=== PATIENT | male | born 1965 | race Caucasian/White ===

== ENCOUNTER 2019-10-14 12:44 | Emergency (ER) | payer MEDICARE, BC, OTHER ==
[~2019-10-14] VITALS: Ht 177.8 cm; Wt 102.3 kg
--- NOTE | 2019-10-14 13:02 | REPVR ---
PROCEDURE INFORMATION: Exam: CT Head Without Contrast Exam date and time: 10/14/2019 12:51 PM Age: 54 years old Clinical indication: Walking, difficulty and weakness, extremity; Left; Additional info: Stroke like symptoms TECHNIQUE: Imaging protocol: Computed tomography of the head without contrast. Radiation optimization: All CT scans at this facility use at least one of these dose optimization techniques: automated exposure control; mA and/or kV adjustment per patient size (includes targeted exams where dose is matched to clinical indication); or iterative reconstruction. Other technique: STROKE PROTOCOL was implemented. COMPARISON: No relevant prior studies available. FINDINGS: Brain: Normal. No hemorrhage. Unremarkable white matter. No mass effect. Ventricles: Normal. No ventriculomegaly. Bones/joints: Unremarkable. No acute fracture. Sinuses: Visualized sinuses are unremarkable. No fluid levels. Mastoid air cells: Visualized mastoid air cells are well aerated. Soft tissues: Unremarkable. IMPRESSION: No acute intracranial abnormality. ASSESSMENT: ASPECTS ([place] Stroke Program Early CT Score) is 10. Electronically signed by: Kole Chu On 10/14/2019 13:01:35 PM
[2019-10-14 13:15] LABS: BASO # 0.1 10^3/uL (0.0-0.2); BASO % 1.6 % (0.0-1.0); EOS # 0.1 10^3/uL (0.0-0.5); EOS % 2.2 % (0.0-3.0); HEMATOCRIT 43.9 % (42.0-52.0); HEMOGLOBIN 15.1 g/dl (13.5-17.5); LYMPH # 0.5 10^3/uL (1.5-5.0); LYMPH % 11.9 % (24.0-44.0); MEAN CORPUSCULAR HEMOGLOBIN 32.6 pg (27.0-33.0); MEAN CORPUSCULAR HGB CONC 34.4 g/dl (32.0-36.5); MEAN CORPUSCULAR VOLUME 94.8 fl (80.0-96.0); MONO # 0.4 10^3/uL (0.0-0.8); MONO % 9.2 % (0.0-5.0); NEUTROPHILS # 3.3 10^3/uL (1.5-8.5); NEUTROPHILS % 74.7 % (36.0-66.0); RED BLOOD COUNT 4.63 10^6/uL (4.30-6.10); WHITE BLOOD COUNT 4.5 10^3/uL (4.0-10.0)
[2019-10-14 13:25] LABS: PARTIAL THROMBOPLASTIN TIME 33.8 SECONDS (25.0-38.4)
[2019-10-14] MEDS ORDERED: JANU100T PO (13:37)
[2019-10-14] MEDS ORDERED: GABA-1171 PO ×2 (13:37→14:29)
[2019-10-14] MEDS ORDERED: SPIR100T3 PO (13:37)
[2019-10-14] MEDS ORDERED: REST30CA PO (13:37)
[2019-10-14] MEDS ORDERED: PROTPAK PO (13:37)
[2019-10-14] MEDS ORDERED: MIRA0.254 PO (13:37)
[2019-10-14] MEDS ORDERED: ROSU10TA6 PO (13:37)
[2019-10-14] MEDS ORDERED: LASI20TA3 PO (13:37)
[2019-10-14] MEDS ORDERED: REGL10TA6 PO (13:37)
[2019-10-14] MEDS ORDERED: ZOLO100T PO (13:37)
[2019-10-14] MEDS ORDERED: BACL10TA2 PO (13:37)
[2019-10-14] MEDS ORDERED: ZOFR8TAB24 PO (13:37)
[2019-10-14] MEDS ORDERED: NITR4TASL SL (13:37)
[2019-10-14] MEDS ORDERED: CARV25TA PO (13:37)
[2019-10-14] MEDS ORDERED: CREO3600 PO ×2 (13:37→14:29)
[2019-10-14] MEDS ORDERED: LACT10SO3 PO (13:37)
[2019-10-14] MEDS ORDERED: FERR325T3 PO (13:37)
[2019-10-14] MEDS ORDERED: HUMU1INJ2 SC (13:37)
[2019-10-14] MEDS ORDERED: XIFA550T PO (13:37)
[2019-10-14] MEDS ORDERED: ETAN50SY SC (13:37)
[2019-10-14] MEDS ORDERED: NEUR600T PO (13:37)
[2019-10-14 13:39] LABS: BLOOD UREA NITROGEN 14 MG/DL (7-18); CARBON DIOXIDE LEVEL 27 MEQ/L (21-32); CHLORIDE LEVEL 100 MEQ/L (98-107); CK-MB VALUE MASS 2.2 NG/ML (<3.6); CPK CREATINE PHOSPHOKINASE 76 U/L (39-308); CREATININE FOR GFR 1.02 MG/DL (0.70-1.30); GLOMERULAR FILTRATION RATE > 60.0 (>56); GLUCOSE, FASTING 319 MG/DL (70-100); INR 1.32; MB/CK RELATIVE INDEX 2.89 (< OR =4); POTASSIUM SERUM 4.3 MEQ/L (3.5-5.1); PROTHROMBIN TIME 16.1 SECONDS (11.8-14.0); SODIUM LEVEL 134 MEQ/L (136-145); TROPONIN I < 0.02 NG/ML (< 0.10)
[2019-10-14 13:43] LABS: PLATELET COUNT, AUTOMATED 50 10^3/uL (150-450)
[2019-10-14] MEDS ORDERED: ISOVUE-370 76% 100ML VIAL As Ordered ONE (13:43)
--- NOTE | 2019-10-14 13:44 | REPVR ---
PROCEDURE INFORMATION: Exam: CT Angiography Neck With Contrast Exam date and time: 10/14/2019 1:11 PM Age: 54 years old Clinical indication: Weakness; Additional info: CVA TECHNIQUE: Imaging protocol: Computed tomography angiography of the neck with intravenous contrast. 3D rendering: MIP and/or 3D reconstructed images were created by the technologist. Radiation optimization: All CT scans at this facility use at least one of these dose optimization techniques: automated exposure control; mA and/or kV adjustment per patient size (includes targeted exams where dose is matched to clinical indication); or iterative reconstruction. Contrast material: ISOVUE 370; Contrast volume: 100 ml; Contrast route: IV; COMPARISON: No relevant prior studies available. FINDINGS: Right common carotid artery: No stenosis. No dissection or occlusion. Right internal carotid artery: No stenosis of the extracranial segment. No dissection or occlusion. Right external carotid artery: No occlusion or stenosis of the origin. Right vertebral artery: No stenosis. No dissection or occlusion. Left common carotid artery: No stenosis. No dissection or occlusion. Left internal carotid artery: No stenosis of the extracranial segment. No dissection or occlusion. Left external carotid artery: No occlusion or stenosis of the origin. Left vertebral artery: No stenosis. No dissection or occlusion. Bones/joints: No acute fracture. Soft tissues: Normal. No significant soft tissue swelling. IMPRESSION: No stenosis or occlusion. REFERENCES: NASCET CRITERIA. The degree of internal carotid artery stenosis is based on NASCET criteria. Normal is no stenosis. Mild is less than 50% stenosis. Moderate is 50-69% stenosis. Severe is 70% to 99% stenosis. Total occlusion is no detectable patent lumen. Electronically signed by: Kole Chu On 10/14/2019 13:43:44 PM
--- NOTE | 2019-10-14 13:48 | REPVR ---
PROCEDURE INFORMATION: Exam: CT Angiography Head With Contrast Exam date and time: 10/14/2019 1:11 PM Age: 54 years old Clinical indication: Weakness; Additional info: CVA TECHNIQUE: Imaging protocol: Computed tomography angiography of the head with intravenous contrast. 3D rendering: MIP and/or 3D reconstructed images were created by the technologist. Radiation optimization: All CT scans at this facility use at least one of these dose optimization techniques: automated exposure control; mA and/or kV adjustment per patient size (includes targeted exams where dose is matched to clinical indication); or iterative reconstruction. Contrast material: ISOVUE 370; Contrast volume: 100 ml; Contrast route: IV; COMPARISON: CT Head without contrast 10/14/2019 12:48 PM FINDINGS: Anterior cerebral arteries: No occlusion or significant stenosis. No aneurysm. Right internal carotid artery: Intracranial segment is patent with no significant stenosis or occlusion. No aneurysm. Right middle cerebral artery: No occlusion or significant stenosis. No aneurysm. Right posterior cerebral artery: No occlusion or significant stenosis. No aneurysm. Right vertebral artery: No occlusion or significant stenosis. No aneurysm. Left internal carotid artery: Intracranial segment is patent with no significant stenosis or occlusion. No aneurysm. 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 Left posterior cerebral artery: No occlusion or significant stenosis. No aneurysm. Left vertebral artery: No occlusion or significant stenosis. No aneurysm. Basilar artery: No occlusion or significant stenosis. No aneurysm. 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 Electronically signed by: Kole Chu On 10/14/2019 13:48:44 PM
--- NOTE | 2019-10-14 13:54 | REP ---
CHEST, PORTABLE: AP portable view of the chest is performed. There is cardiomegaly. There is poor ventilation. I see no acute infiltrate. Mediastinal silhouette is unremarkable. IMPRESSION: Cardiomegaly. No evidence of acute infiltrate. Electronically Signed by Dario Mathur MD 10/14/2019 07:47 P
[2019-10-14] MEDS ORDERED: ACETAMINOPHEN 500 MG TAB PO ONE (14:00)
[2019-10-14] MEDS ORDERED: FURO40TA2 PO (14:29)
[2019-10-14] MEDS ORDERED: HUMU500S SC ×2 (14:29)
[2019-10-14] MEDS ORDERED: ROSU5TAB5 PO (14:29)
[2019-10-14] MEDS ORDERED: PANT-23 PO (14:29)
[2019-10-14 15:00] VITALS: BP 120/60
--- NOTE | 2019-10-14 15:10 | ECGEPIP ---
[facility] - ED Test Date: 2019-10-14 Pat Name: CORTNEY GOLDBERG Department: Room: - Gender: Male [employer]: : [id number] Requested By: Camille Garrett Order Number: [id number] Reading MD: Camille Garrett Measurements Intervals [place] Rate: 63 P: 24 [place]: 171 QRS: -11 QRSD: 88 T: -5 QT: 485 QTc: 499 Interpretive Statements SINUS RHYTHM MINIMAL VOLTAGE CRITERIA FOR LVH, CONSIDER NORMAL VARIANT PROLONGED QT INTERVAL, CLINICAL CORRELATION NSTTW abnormalities No prior Electronically Signed on 10-14-2019 15:10:27 EDT by Camille Garrett
== END 2019-10-14 15:18 | disposition short-term general hospital (02) ==
LOC: M ED 12:44
DX: I67.1 Cerebral aneurysm, nonruptured (principal); I10 Essential (primary) hypertension; E11.9 Type 2 diabetes mellitus without complications; E78.5 Hyperlipidemia, unspecified; K74.60 Unspecified cirrhosis of liver; Z79.899 Other long term (current) drug therapy; Z79.4 Long term (current) use of insulin; Z87.891 Personal history of nicotine dependence
CPT/HCPCS: 36415; 70450; 70496; 70498; 71045; 80048; 82550; 82553; 84484; 85025; 85049; 85055; 85610; 85730; 86850; 86900; 86901; 93005; 93041; 94760; 99291; Q9967